=== PATIENT | female | born 1960 | race Caucasian/White ===

== ENCOUNTER → 2017-08-17 | Outpatient (CLI) | payer BC ==
[~2017-08-17] MED LIST: AMIT25; HYDR1TAB94; Lisinopril2.5 MG; Lovastatin10 MG; METH5; MORP60ER; Mobic15 MG; Prinivil10 MG; Synthroid175 MCG; Zanaflex4 M1
[2017-08-19 13:37] LABS: Stool Occult Bld Immuno 1 Negative (NEGATIVE); Stool Occult Bld Immuno 2 Negative (NEGATIVE)
== END | disposition home or self-care (01) ==
LOC: LAB 15:34 → LAB SHORT 15:34
PROVIDERS: Nurse Practitioner Family
DX: Z00.00 Encounter for general adult medical examination without abnormal findings (principal); Z12.11 Encounter for screening for malignant neoplasm of colon
CPT/HCPCS: G0328

== ENCOUNTER 2023-07-11 08:00 | Day surgery (SDC) | payer MEDICARE ==
[~2023-07-11] VITALS: Ht 157.5 cm; Wt 99.9 kg
[2023-07-11] VITALS (17 sets, daily range): BP systolic 82–141; BP diastolic 43–82
[~2023-07-11 08:00] MED LIST changes: -AMIT25; +AMIT25 PO; +Acetaminophen 500 MG Tab PO SCH; +CeFAZolin Sodium 2,000 MG in NS 50 ML IV SCH; +Chlorhexidine Mouth Care 15 ML UDC MT SCH; +DULO60 PO; +LIOT5 PO; +Lactated Ringer's 1,000 ML IV SCH; -Lovastatin10 MG; +Lovastatin10 MG PO; +METF500 PO; -MORP60ER; +MORP60ER PO; +Norco 10-325 T1 EACH PO; +OxyCODONE HCL 10 MG TABCR PO SCH; +PROG100 PO; -Prinivil10 MG; +Prinivil10 MG PO; -Synthroid175 MCG; +Synthroid175 MCG PO; +TIZA4 PO; -Zanaflex4 M1
[2023-07-11] MEDS ORDERED: Tranexamic Acid 100 ML IV SCH (08:20)
[2023-07-11] MEDS ORDERED: Ropivacaine 0.5% HCl/Pf 67.75 MG,EPINEPHrine HCL 0.25 MG,Ketorolac Tromethamine 15 MG,C... INFIL SCH (08:20)
[2023-07-11] MEDS ORDERED: FentaNYL Citrate 50 MCG/ML 2 ML Injection ONE (08:29)
[2023-07-11] MEDS ORDERED: propofoL 40 ML IV ONE ×3 (08:29→11:47)
[2023-07-11] MEDS ORDERED: Metoclopramide HCl 5MG / ML 2ML Vial IV PRN ×2 (08:30→13:10)
[2023-07-11] MEDS ORDERED: HYDROmorphone HCl/Pf 1MG SYR IV PRN ×2 (08:30→13:15)
[2023-07-11] MEDS ORDERED: FentaNYL Citrate 50 MCG/ML 2 ML Injection IV PRN ×3 (08:30)
[2023-07-11] MEDS ORDERED: Lidocaine HCl 1% 5 ML SYR INJ ONE (08:30)
[2023-07-11] MEDS ORDERED: Midazolam HCl 1MG / ML 2ML Vial IV PRN (08:35)
[2023-07-11] MEDS ORDERED: Ondansetron HCl 2 MG / ML 2ML Vial IV PRN ×2 (08:35→13:20)
--- NOTE | 2023-07-11 09:06 | NUR ---
Ambulatory in Day Surgery WITH STEADY GAIT. Surgical site prepped with 2% Chlorhexidine cloth wipe, SKIN INTACT WITH NO IRRITATION. History, Chart, Medications and Allergies reviewed before start of procedure. Lungs clear T/O to Auscultation. Patient confirms NPO status and agrees with scheduled surgery. Pre-Op teaching done. Pt verbalizes understanding. PARTIAL AND GLASSES PLACED IN PACU.
[2023-07-11] MEDS ORDERED: Phenylephrine HCl 100 MCG/ML-NS 10MLSYR (1MG/10ML) ONE ×3 (10:27→12:08)
[2023-07-11] MEDS ORDERED: ePHEDrine Sulfate 50 MG/ML 1ML Injection ONE (11:00)
--- NOTE | 2023-07-11 11:03 | NUR ---
07/11/23 1103 Lluvia Newton SPINAL NERVE BLOCK COMPLETED BY DR. STINSON UPON ENTRY TO OR. PT TOLERATED WELL.
[2023-07-11] MEDS ORDERED: propofoL 20 ML IV ONE (12:16)
[2023-07-11] MEDS ORDERED: Lactated Ringer's 1,000 ML IV SCH (13:10)
[2023-07-11] MEDS ORDERED: Magnesium Hydroxide Conc 10 ML UDC PO PRN (13:10)
[2023-07-11] MEDS ORDERED: TiZANidine HCl 4 MG Tab PO PRN (13:10)
[2023-07-11] MEDS ORDERED: FLU VACC QS2023-24(6MOS UP)/PF 60 MCG/0.5 ML SYRINGE IM SCH (13:15)
[2023-07-11] MEDS ORDERED: DiphenhydrAMINE HCL 25 MG Cap PO PRN (13:15)
[2023-07-11] MEDS ORDERED: Promethazine HCl 25 MG Tab PO PRN (13:20)
[2023-07-11] MEDS ORDERED: OxyCODONE HCL 5 MG TAB PO PRN ×2 (13:20)
[2023-07-11] MEDS ORDERED: Bisacodyl 10 MG Supp PR PRN (13:20)
[2023-07-11] MEDS ORDERED: METH5 PO (14:22)
--- NOTE | 2023-07-11 15:44 | NUR ---
Pt. is awake and sitting in a recliner when she welcomes my visit. Pt. is pleasant and displays evidence of a joyful spirit. Facilitate a life review and consider matters of марина and belief. Pt. displays evidence of trust once rapport is established. Prayed with Pt. Pt. verbalizes gratitude for the spiritual care visit.
[2023-07-11] MEDS ORDERED: Acetaminophen 500 MG Tab PO SCH (16:00)
[2023-07-11] MEDS ORDERED: MetFORMIN HCl 500 mg PO SCH (17:00)
--- NOTE | 2023-07-11 17:44 | NUR ---
ADMITTED TO ROOM 216 POST OP VITALS STABLE, MEDICATED FOR PAIN, PARTICIPATES IN PT. ABLE TO VOID SPONTANEOUSLY. ICE TO L KNEE SCD'S IN PLACE. AQUACEL DRESSING TO L KNEE IS C/D/I. TOELRATING PO INTAKE DENIES N/T. CALLS WITH NEEDS. CALL LIGHT IN REACH.
[2023-07-11] MEDS ORDERED: Ketorolac Tromethamine 15mg Vial IV SCH (18:00)
[2023-07-11] MEDS ORDERED: CeFAZolin Sodium 2,000 MG in NS 50 ML IV SCH (18:00)
[2023-07-11] MEDS ORDERED: Amitriptyline HCl 50 MG Tab PO SCH (21:00)
[2023-07-11] MEDS ORDERED: Progesterone, Micronized 100 MG Cap PO SCH (21:00)
[2023-07-11] MEDS ORDERED: Morphine Sulfate 30 MG TabCR PO SCH (21:00)
[2023-07-11] MEDS ORDERED: Docusate Sodium 100 MG Cap PO SCH (21:00)
[2023-07-11] MEDS ORDERED: Methadone HCL 10 MG TAB PO SCH (21:00)
[2023-07-11] MEDS ORDERED: DULoxetine HCL 60 MG Capsule DR PO SCH (21:00)
[2023-07-12 03:54] VITALS: BP 133/67
[2023-07-12 04:35] LABS: BASOPHILS ABSOLUTE AUTO 0.02 K/mm3 (0.00-0.23); BASOPHILS PERCENT AUTO 0 % (0-2); EOSINOPHILS ABSOLUTE AUTO 0.04 K/mm3 (0.00-0.68); EOSINOPHILS PERCENT AUTO 0 % (0-6); Hematocrit 37.2 % (33.0-51.0); Hemoglobin 12.3 g/dL (11.5-16.0); IMMATURE GRAN ABSOLUTE AUTO 0.03 K/mm3 (0.00-0.10); IMMATURE GRAN PERCENT AUTO 0 % (0-1); LYMPHOCYTES ABSOLUTE AUTO 1.11 K/mm3 (0.84-5.20); LYMPHOCYTES PERCENT AUTO 12 % (21-46); MONOCYTES ABSOLUTE AUTO 0.76 K/mm3 (0.16-1.47); MONOCYTES PERCENT AUTO 9 % (4-13); Mean Corpuscular HGB 31.3 pg (26.0-34.0); Mean Corpuscular HGB Conc 33.1 g/dL (31.5-36.5); Mean Corpuscular Volume 95 fL (80-100); Mean Platelet Volume 12.1 fL (9.1-12.4); NEUTROPHILS ABSOLUTE AUTO 6.97 K/mm3 (1.96-9.15); NEUTROPHILS PERCENT AUTO 78 % (41-73); Platelet Count 180 K/mm3 (150-400); RDW Standard Deviation 45.4 fL (35.1-46.3); Red Blood Cell Count 3.93 M/mm3 (3.80-5.20); White Blood Cell Count 8.93 K/mm3 (4.00-11.30)
[2023-07-12] MEDS ORDERED: Levothyroxine Sodium 0.15 MG Tab PO SCH (06:00)
--- NOTE | 2023-07-12 06:24 | NUR ---
POD 1 S/P L TKA. PT VSS T/O NIGHT. DRESSING CDI, KNEE DOES APPEAR MORE SWOLLEN THIS AM, POLAR PACK IN PLACE T/O NIGHT. PT STRUGGLED W/PAIN CONTROL, MED PER EMAR W/REP RELIEF. PT FRANCOIS PO, DENIED N/V, IS VOIDING URINE W/O DIFFICULTY. PT AMB W/FWW+1 ASSIST, REP FEELING UNSTEADY THIS AM R/T KNEE SWELLING. PT UP IN CHAIR W/LEGS ELEVATED THIS AM. PLAN TO MOBILIZE W/PT AND DC HOME WHEN CLEARED.
[2023-07-12 06:32] LABS: Bun/Creatinine Ratio 16.1 (12.0-20.0); Calcium, Blood 8.6 mg/dL (8.5-10.1); Creatinine, Blood 0.93 mg/dL (0.40-1.00); Magnesium, Blood 1.5 mg/dL (1.6-2.4)
[2023-07-12 07:38] VITALS: BP 125/55
[2023-07-12] MEDS ORDERED: ACET500 PO (07:45)
[2023-07-12] MEDS ORDERED: OXYC5 PO (07:46)
[2023-07-12] MEDS ORDERED: ASPI81CH PO (07:46)
[2023-07-12] MEDS ORDERED: Liothyronine Sodium 5 MCG Tab PO SCH (09:00)
[2023-07-12] MEDS ORDERED: Aspirin 81 MG Chew PO SCH (09:00)
[2023-07-12] MEDS ORDERED: Atorvastatin 10 MG Tab PO SCH (09:00)
[2023-07-12] MEDS ORDERED: Lisinopril 20 MG Tab PO SCH (09:00)
--- NOTE | 2023-07-12 11:49 | NUR ---
DISCHARGE PATIENT CLEARS THERAPY, DENIES N/T. MEDICATED FOR PAIN AND TOLERATED WELL. DENIES N/V. DRESSING TO LEFT KNEE IS C/D/I. EXTRA AQUACEL DRESSINGS IN DISCHARGE PACKET. ALL INSTRUCTIONS READ AND UNDERSTOOD. ICE MACHINE PACKED UP AND ALL BELONGINGS TAKEN TO VEHICLE. PATIENT LEAVES PRIVATE CAR @1000.
== END 2023-07-12 10:05 | disposition home or self-care (01) ==
LOC: ORSCMMR 08:00 → ORD 10:30 → SURS 13:01 → ORSCMMR 07-12 10:05
PROVIDERS: Orthopaedic Surgery
PROC: 0SRD0J9 Replacement of Left Knee Joint with Synthetic Substitute, Cemented, Open Approach (ICD-10-PCS; principal; 2023-07-11 10:30)
DX: M17.12 Unilateral primary osteoarthritis, left knee (principal); E11.9 Type 2 diabetes mellitus without complications; M79.7 Fibromyalgia; Z68.41 Body mass index [BMI] 40.0-44.9, adult; E03.9 Hypothyroidism, unspecified; Z79.899 Other long term (current) drug therapy
CPT/HCPCS: 36415; 73560-LT; 80048; 82947; 83735; 85025; 97110; 97116; 97161; 97530; A9270; C1776; J0171; J0690; J0735; J1170; J1885; J2250; J2371; J2405; J2704; J2795; J3010; J7120